=== PATIENT | female | born 1990 | race Caucasian/White ===

== ENCOUNTER 2018-10-09 12:29 | Inpatient (IN) | payer OTHER ==
[2018-10-09 13:07] LABS: Bilirubin Small (Negative); Blood, Urine Small (Negative); Glucose, Urine (Dipstick) 500 mg/dL (Negative); Leukocyte Negative (Negative); Nitrite Negative (Negative); Protein, Urine (Dipstick) 100 mg/dL (Neg-Trace); Urobilinogen 0.2 mg/dL (0.2-1.0)
[2018-10-09 13:29] LABS: Clarity Slightly Cloudy (Clear)
[2018-10-09 13:30] LABS: Bacteria/HPF 1+ HPF (None Seen); RBC/HPF 0-3 HPF (0-3); WBC/HPF 0-3 HPF (0-3)
[2018-10-09] MEDS ORDERED: Insulin Regular 300 UNITS/3 ML VIAL ONE (13:30)
[2018-10-09 13:31] LABS: Hyaline Casts/LPF 0-3 HYALINE CAST LPF (0-3 Hyaline); Other Casts/LPF 0-3 FINELY GRAN LPF (0-3 Hyaline)
[2018-10-09 13:35] LABS: Base Excess-Venous -17.8 mmol/L (-2.0 to 3.0); Bicarbonate (HCO3v) 8.6 mmol/L (22.0-28.0); CO2 Tension (PvCO2) 23.4 mmHg (40.0-50.0); Calcium, Ionized 1.11 mmol/L (See Comments:); Chloride 110 mmol/L (98-107); Hemoglobin - Calc 17.8 g/dL (12.0-16.0); O2 Tension (PvO2) 44.1 mmHg (35.0-45.0); Potassium 4.5 mmol/L (3.5-5.1); Sodium 133 mmol/L (138-145); T. Carbon Dioxide 9.3 mmol/L (22.0-28.0); pH (Venous) 7.173 (7.320-7.430)
[2018-10-09 13:38] LABS: Hemoglobin 16.4 g/dL (12.0-16.0); Mean Corpuscular HGB CONC 32.2 g/dL (32.0-36.0); Mean Corpuscular Hemoglobin 30.6 pg (27.0-31.0); Mean Corpuscular Volume 95.3 fL (78.0-98.0); Mean Platelet Volume 8.9 fL (7.4-10.4); Platelet Count 289 thou/uL (130-400); RBC Distribution Width 12.7 % (11.5-14.5); Red Blood Cell (RBC) Count 5.34 mill/uL (4.20-5.40); White Blood Cell (WBC) Count 10.2 thou/uL (4.8-10.8)
[2018-10-09 13:39] LABS: BHCG - Serum Negative (NEGATIVE); Pregs Control Background? CLEAR/WHITE (CLR/WHITE); Pregs Control Bar Appear? YES (CONTROL BAR)
[2018-10-09 13:48] LABS: Band 1 % (5-11); Lymphocytes 7 % (21-51); MDiff Complete? YES; Monocytes 3 % (0-10); Neutrophil 89 % (42-75); Platelet Morphology Comment PLT clumps seen-ADEQ
[2018-10-09 13:51] LABS: ALT (SGPT) 22 U/L (8-55); AST (SGOT) 23 U/L (5-34); Albumin 5.1 g/dL (3.5-5.0); Alkaline Phosphatase 96 U/L (40-150); BUN (Urea Nitrogen) 15 mg/dL (7.0-18.7); Bilirubin, Total 0.5 mg/dL (0.2-1.2); Calc. Creatinine Clearance 0 mL/min (70-130); Calcium 10.1 mg/dL (7.8-10.44); Chloride 104 mmol/L (98-107); Estimated GFR-MDRD 40; Globulin 3.8 g/dL (2.4-3.5); Glucose 360 mg/dL (70-105); Lipase 19 U/L (8-78); Magnesium 2.2 mg/dL (1.6-2.6); Phosphorus 3.1 mg/dL (2.3-4.7); Potassium 4.5 mmol/L (3.5-5.1); Protein, Total 8.9 g/dL (6.0-8.3); Sodium 134 mmol/L (136-145)
[2018-10-09 13:52] LABS: Carbon Dioxide Less than 8 mmol/L (22-29)
[2018-10-09] MEDS ORDERED: NS 0.9% w/ 20 MEQ KCL 1,000 ML ONE (17:19)
[2018-10-09] MEDS ORDERED: Dextrose 50% Abboject 50 ML SYRINGE ONE (17:31)
[2018-10-09 18:05] LABS: Anion Gap 20 mmol/L (10-20)
[2018-10-09 18:15] LABS: Calcium 8.4 mg/dL (7.8-10.44)
[2018-10-09 18:16] LABS: BUN (Urea Nitrogen) 11 mg/dL (7.0-18.7); Calc. Creatinine Clearance 0 mL/min (70-130); Carbon Dioxide 11 mmol/L (22-29); Chloride 110 mmol/L (98-107); Estimated GFR-MDRD 65; Glucose 226 mg/dL (70-105); Potassium 3.9 mmol/L (3.5-5.1); Sodium 137 mmol/L (136-145)
[2018-10-09] MEDS ORDERED: Dextrose 5% in Water 1,000 ML IV PRN (19:28)
[2018-10-09] MEDS ORDERED: Acetaminophen 500 MG TAB PO PRN (19:28)
[2018-10-09] MEDS ORDERED: Dextrose 5 %-0.45 % NaCl 1,000 ML IV PRN (19:28)
[2018-10-09] MEDS ORDERED: Ondansetron ODT 4 MG TAB PO PRN (19:28)
[2018-10-09] MEDS ORDERED: CCU Electrolyte Replacement 1 EACH IVPB SCH (19:28)
[2018-10-09] MEDS ORDERED: NS 0.9% w/ 20 MEQ KCL 1,000 ML IV PRN ×2 (19:28)
[2018-10-09] MEDS ORDERED: Ondansetron PF 4 MG/2 ML Vial IVP PRN (19:28)
[2018-10-09] MEDS ORDERED: Sodium Chloride 0.9% 1,000 ML IV PRN ×4 (19:28)
[2018-10-09] MEDS ORDERED: Dextrose 50% Abboject 50 ML SYRINGE SLOW IVP PRN (19:28)
[2018-10-09] MEDS ORDERED: HumaLOG 300 UNITS/3 ML VIAL SC PRN ×2 (19:28)
[2018-10-09] MEDS ORDERED: HUMULIN R 100 UNITS in Sodium Chloride 0.9% 100 ML IVPB SCH (19:30)
[2018-10-09] MEDS ORDERED: Potassium Chloride 40 MEQ in Premix Bag 1 BAG IVPB PRN (19:35)
[2018-10-09] MEDS ORDERED: Potassium Phosphate 12 MMOL in Sodium Chloride 0.9% 250 ML 250 ML IV PRN (19:35)
[2018-10-09] MEDS ORDERED: Magnesium Oxide 400 MG TAB PO PRN ×2 (19:35)
[2018-10-09] MEDS ORDERED: CCU ELECTROLYTE REPLACEMENT PROTOCOL FS PRN (19:35)
[2018-10-09] MEDS ORDERED: Potassium Chloride 40 MEQ in Sodium Chloride 0.9% 250 ML 250 ML IVPB PRN (19:35)
[2018-10-09] MEDS ORDERED: Potassium Phosphate 9 MMOL in Sodium Chloride 0.9% 100 ML IVPB PRN (19:35)
[2018-10-09] MEDS ORDERED: Potassium Phosphate 15 MMOL in Sodium Chloride 0.9% 250 ML 250 ML IV PRN (19:35)
[2018-10-09] MEDS ORDERED: Potassium Chloride 20 MEQ TAB PO PRN (19:35)
[2018-10-09] MEDS ORDERED: Magnesium 2 GM/50 ML 2 GM in Premix Bag 1 BAG IVPB PRN (19:35)
[2018-10-09] MEDS: Famotidine 20 MG TAB PO SCH (20:11)
[2018-10-09 20:30] VITALS: BMI 22.8
[2018-10-09 20:35] LABS: Anion Gap 19 mmol/L (10-20); BUN (Urea Nitrogen) 9 mg/dL (7.0-18.7); Calc. Creatinine Clearance 81 mL/min (70-130); Calcium 8.3 mg/dL (7.8-10.44); Carbon Dioxide 14 mmol/L (22-29); Chloride 107 mmol/L (98-107); Estimated GFR-MDRD 60; Glucose 244 mg/dL (70-105); Potassium 4.2 mmol/L (3.5-5.1); Sodium 136 mmol/L (136-145)
[2018-10-09] MEDS: D5 1/2 NS w/20 mEq KCL 1,000 ML IV PRN (20:36)
[2018-10-10 00:22] LABS: Anion Gap 12 mmol/L (10-20); BUN (Urea Nitrogen) 7 mg/dL (7.0-18.7); Calc. Creatinine Clearance 90 mL/min (70-130); Calcium 8.2 mg/dL (7.8-10.44); Carbon Dioxide 17 mmol/L (22-29); Chloride 110 mmol/L (98-107); Estimated GFR-MDRD 68; Glucose 266 mg/dL (70-105); Potassium 3.1 mmol/L (3.5-5.1); Sodium 136 mmol/L (136-145)
[2018-10-10] MEDS: D5 1/2 NS w/20 mEq KCL 1,000 ML IV PRN ×3 (00:58→09:16)
--- NOTE | 2018-10-10 02:53 | HP ---
PRIMARY CARE PROVIDER: Dr. Cardenas. CHIEF COMPLAINT: Nausea and vomiting. HISTORY OF PRESENT ILLNESS: This is a 28-year-old female, who presents to [facility] Emergency Department after initially presenting with complaints of nausea, vomiting, general fatigue, and fast heart rate. The patient with a known history of diabetes mellitus type 1 diagnosed at 12 years of age. Noted increased heart rate in the last 48 hours. 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 The patient states she felt somewhat under the weather with low-grade fever, but denied any known sick contacts, recent immunizations, or family members with similar symptoms. The patient denied any specific sore throat, increased cough, congestion, dysuria, or diarrhea. The patient does admit to some mild abdominal cramping, however, this was relieved after several bouts of emesis. The patient states she normally controls her glucose very well at home, taking long and short-acting insulin on a tight regimen. The patient states she checked her glucose at home with a value noted at 470. In the emergency room, the patient underwent general evaluation with lab values concerning for diabetic ketoacidosis with elevated beta-hydroxybutyrate level as well as ketones and glucose in the urine. Initial venous blood gas showed a value of 7.17. The patient was initiated on IV fluids and DKA protocol receiving intravenous normal saline as well as Novolin R at 6 units/hour. The patient was transferred to the intermediate care unit for further evaluation. PAST MEDICAL HISTORY: 1. Diabetes mellitus type 1 diagnosed at 12 years of age on short and long- acting insulin. 2. Hypothyroidism. PAST SURGICAL HISTORY: Status post cyst removal from the neck. CURRENT MEDICATIONS: 1. Long-acting insulin and Humalog sliding scale. 2. Levothyroxine. ALLERGIES: NO KNOWN DRUG ALLERGIES. FAMILY HISTORY: Maternal aunt with diabetes mellitus. SOCIAL HISTORY: The patient is . Denies tobacco or illicit drug use. Occasional alcohol use. 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 REVIEW OF SYSTEMS: CONSTITUTIONAL: Negative for weight loss or gain, ability to conduct usual activities. SKIN: Negative for rash, itching. EYES: Negative for double vision, pain. ENT/MOUTH: Negative for nose bleeding, neck stiffness, pain, tenderness. CARDIOVASCULAR: Negative for palpitations, dyspnea on exertion, orthopnea. RESPIRATORY: Negative for shortness of breath, wheezing, cough, hemoptysis, fever or night sweats. GASTROINTESTINAL: Negative for poor appetite, abdominal pain, heartburn, nausea , vomiting, constipation, or diarrhea. GENITOURINARY: Negative for urgency, frequency, dysuria, nocturia. MUSCULOSKELETAL: Negative for pain, swelling. NEUROLOGIC/PSYCHIATRIC: Negative for anxiety, depression. ALLERGY/IMMUNOLOGIC: Negative for skin rash, bleeding tendency. Otherwise, negative except as stated per HPI. PHYSICAL EXAMINATION: VITAL SIGNS: On admission, blood pressure 129/78, pulse 139, respiratory rate 22, temperature 98.9 degrees Fahrenheit, O2 saturation 100% on room air. GENERAL APPEARANCE: This is a 28-year-old female, alert and oriented x3, pleasant, responsive, in no acute distress. HEENT: Pupils are equal, round, reactive to light and accommodation. Extraocular muscles are intact. No scleral icterus. No conjunctival injection. Nares patent. OP is clear. Oral mucosa dry appearing. NECK: Supple. No cervical adenopathy. No thyromegaly. No carotid bruits. No JVD appreciated. Cervical spine with full active and passive range of motion. No meningeal signs noted. CHEST: Lungs are clear to auscultation bilaterally. CARDIOVASCULAR: S1, S2 with tachycardia. ABDOMEN: Rounded, soft, nontender, and nondistended. Bowel sounds are positive in all 4 quadrants. There is no hepatosplenomegaly. No abdominal bruits. No rebound or guarding appreciated. EXTREMITIES: Warm and dry with fair turgor. No clubbing, cyanosis, or asymmetric edema appreciated. Pulses are palpable distally at the dorsalis pedis, posterior tibial, and popliteal arteries bilaterally. Capillary refill less than 2 seconds. NEUROLOGIC: Cranial nerves 2 through 12 are grossly intact. No focal or lateralizing signs appreciated. PERTINENT LABORATORY AND X-RAY FINDINGS: Sodium 137, potassium 3.9, chloride 110, CO2 ranged between less than 8 to 11, creatinine 1.02, estimated GFR 65, phosphorus 3.1, magnesium level 2.2. LFTs within normal limits. Serum beta-hCG negative. Lipase 19. CBC showed a white blood cell count of 10.2, hemoglobin 16.4, hematocrit 51, platelet count 289 with 89% neutrophilia. Venous blood gas dated 2018 at 1324 showed a pH of 7.17, pCO2 of 23.4, pO2 of 44.1, bicarb level 8.6. Urinalysis dated 10/09/2018 showed protein, glucose, ketones with small bilirubin and 7 to 10 squamous epithelial cells. Beta-hydroxybutyrate level 7.55. Telemetry monitoring shows sinus tachycardia with heart rates in the 110s. ASSESSMENT AND PLAN: 1. Diabetic ketoacidosis. The patient will be admitted to the intermediate care unit. We will continue insulin infusion at 2 units/hour. We will continue diabetic ketoacidosis protocol with aggressive IV fluid hydration. Serial beta-hydroxybutyrate level monitoring. Repeat basic metabolic profile in the a.m. No current evidence to suggest focal infectious process. 2. Acute kidney injury. Suspect secondary to dehydration and diabetic ketoacidosis. We will continue IV fluid hydration and avoid nephrotoxic agents and limit contrast exposure. Repeat creatinine in the a.m. 3. Hyponatremia. Suspect pseudohyponatremia due to hyperglycemia. We will continue normal saline infusion and repeat sodium level in the a.m. 4. Nausea and vomiting. Secondary to diabetic ketoacidosis. We will continue IV fluids as outlined previously. Antiemetics with Zofran. 5. Hypothyroidism. Resume home levothyroxine once dose is confirmed. 6. Prophylaxis. Sequential compression devices while in bed. Pepcid 20 mg p.o. b.i.d.. 7. Code status is full. Surrogate medical decision maker is patient's spouse. Job ID: [id number] MTDD
[2018-10-10 05:48] LABS: Anion Gap 10 mmol/L (10-20); BUN (Urea Nitrogen) 6 mg/dL (7.0-18.7); Calc. Creatinine Clearance 118 mL/min (70-130); Calcium 7.9 mg/dL (7.8-10.44); Carbon Dioxide 19 mmol/L (22-29); Chloride 111 mmol/L (98-107); Estimated GFR-MDRD Greater than 90; Glucose 113 mg/dL (70-105); Potassium 3.8 mmol/L (3.5-5.1); Sodium 136 mmol/L (136-145)
[2018-10-10 05:59] LABS: Band 2 % (5-11); Eosinophils 2 % (0-10); Hemoglobin 13.1 g/dL (12.0-16.0); Lymphocytes 31 % (21-51); MDiff Complete? YES; Mean Corpuscular HGB CONC 35.7 g/dL (32.0-36.0); Mean Corpuscular Hemoglobin 32.6 pg (27.0-31.0); Mean Corpuscular Volume 91.4 fL (78.0-98.0); Mean Platelet Volume 8.2 fL (7.4-10.4); Monocytes 9 % (0-10); Neutrophil 56 % (42-75); Platelet Count 264 thou/uL (130-400); RBC Distribution Width 11.7 % (11.5-14.5); Red Blood Cell (RBC) Count 4.02 mill/uL (4.20-5.40); White Blood Cell (WBC) Count 7.2 thou/uL (4.8-10.8)
[2018-10-10] MEDS: Famotidine 20 MG TAB PO SCH (09:19)
[2018-10-10] MEDS ORDERED: HumaLOG 300 UNITS/3 ML VIAL SC PRN (10:33)
[2018-10-10] MEDS ORDERED: Insulin Glargine 20 UNITS in Pre-Filled Syringe 1 EACH SC SCH (10:45)
[2018-10-10 13:21] VITALS: TEMP 97.1
[2018-10-10 13:41] VITALS: BP 104/57
--- NOTE | 2018-10-11 05:01 | DIS ---
DATE OF ADMISSION: 10/09/2018 DATE OF DISCHARGE: 10/10/2018 DISCHARGE DIAGNOSES: 1. Diabetic ketoacidosis, resolving. 2. Acute kidney injury secondary to diabetic ketoacidosis and dehydration, resolved. 3. Hyponatremia secondary to hyperglycemia, resolved. 4. Nausea and vomiting, resolved. 5. Hypothyroidism, stable. CONSULTATIONS: None. PERTINENT LABORATORY AND X-RAY FINDINGS: Sodium ranged between 134 to 137, creatinine ranged between 0.74 to 1.53. Estimated GFR ranged between 40 to greater than 90. CO2 ranged between less than 8 to 19. Phosphorus 3.1, magnesium 2.2. Serum beta-HCG negative. CBC showed a white blood cell count ranged between 7.2 to 10.2, hemoglobin ranged between 13.1 to 16.4. Beta-hydroxybutyrate level ranged between 1.09 to 7.55. HOSPITAL COURSE: The patient was admitted to the intermediate care unit after presenting with persistent nausea and vomiting with hyperglycemia and evidence of diabetic ketoacidosis. The patient with initial venous blood gas, pH of 7.17 with associated elevated beta-hydroxybutyrate level of 7.55. The patient was initiated on DKA protocol with aggressive IV fluid hydration as well as treated with insulin infusion. The patient had rapid improvement clinically with resolution of nausea and vomiting as well as correction of electrolyte abnormalities including hyponatremia and acute kidney injury. The patient transitioned off insulin infusion to long-acting subcutaneous insulin and resumed a regular ADA diet. No focal infectious process was identified. The patient clinically improved in 24 hours. I have examined the patient at the time of discharge and discussed followup instructions. The patient verbalized understanding and in agreement, ready for discharge on 10/10/2018. DISCHARGE MEDICATIONS: 1. Basaglar 32 units subcutaneously b.i.d. 2. Humalog sliding scale. FOLLOWUP: The patient may follow up with her primary care provider, Dr. Cardenas within 7 days of discharge. CONDITION ON DISCHARGE: Stable. ACTIVITY: Ad-richi. DIET: ADA. CODE STATUS: Full. DISPOSITION: To home on 10/10/2018. Job ID: [id number]
== END 2018-10-10 16:50 | disposition home or self-care (01) | DRG 638 ==
LOC: SCSER 12:29 → SCSEROBS 14:00 → IMCU/EMU 17:47
PROVIDERS: ADMIT Internal Medicine; ATTEND Internal Medicine
DX: E10.10 Type 1 diabetes mellitus with ketoacidosis without coma (principal); N17.9 Acute kidney failure, unspecified; E87.1 Hypo-osmolality and hyponatremia; E86.0 Dehydration; E03.9 Hypothyroidism, unspecified; Z79.4 Long term (current) use of insulin
CPT/HCPCS: 36415; 36416; 80048; 80053; 81003; 81015; 82010; 82330; 82803; 83690; 83735; 84100; 84703; 85007; 85014; 85025; 85027; 87086; 96361; 96365; 96366; 96375; J1815; J1825; J7050